=== PATIENT | female | born 1975 | race Caucasian/White ===

== ENCOUNTER 2020-04-22 14:28 | Emergency (ER) | payer MEDICAID, SELFPAY ==
[2020-04-22 14:29] VITALS: BP 125/79; PULSE 82; RESP 16; TEMP 36.7; O2SAT 96; BMI 27.1
--- NOTE | 2020-04-22 15:37 | RAD_ITS ---
STUDY: X-RAY - RIGHT KNEE REASON FOR EXAM: Female, 45 years old. RIGHT KNEE PAIN AND SWELLING. NO KNOWN INJURY TECHNIQUE: 4 view(s) of the knee. COMPARISON: None. FINDINGS: Normal visualized distal femur. Normal visualized proximal tibia and fibula. Normal proximal tibiofibular articulation. Normal medial femorotibial compartment. Normal lateral femorotibial compartment. Normal patellofemoral articulation. The soft tissue structures are unremarkable. RAD/Knee 4 or More Views IMPRESSION: Normal x-ray examination of the knee. Electronically Signed: Leonidas Charles, at 15:52 EDT , Service support ,
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
== END 2020-04-22 16:29 | disposition home or self-care (01) ==
PROVIDERS: Emergency Provider Emergency Medicine
DX: M25.561 Pain in right knee (principal); E78.5 Hyperlipidemia, unspecified
CPT/HCPCS: 73564; 99282

== ENCOUNTER 2022-01-02 21:58 | Emergency (ER) | payer MEDICAID, SELFPAY ==
[2022-01-02 21:59] VITALS: BP 118/79; PULSE 84; RESP 16; TEMP 36.7; O2SAT 100; BMI 26.1
--- NOTE | 2022-01-02 22:40 | ED.VIS.BACK ---
HPI History of Present Illness Chief Complaint: Back Informant: patient Narrative Narrative: Patient's been having exacerbation of her back pain for about 3 or 4 weeks. It is on the lower right side. It radiates to the upper right buttock only. No radiation down the legs. No bowel bladder dysfunction. No cancer. No recent fevers chills. No recent infections. She has had this in the past. She just has had trouble getting into her physician. Her appointment is coming up this Sunday and it is just bothering her too much. It is worse if she sits or bends. It is better if she lays on either one of her side and pulls her knees up toward her chest. She has been trialing Tylenol Motrin without any benefit. She has no trauma or fall. 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 [facility] Medical History Degenerated intervertebral disc Home Medications atorvastatin 20 mg PO QHS 12/10/13 [History Last Taken 08/23/17] gabapentin 600 mg PO DAILY 12/10/13 [History Last Taken 08/23/17] methylprednisolone 4 mg PO UD #1 box 04/22/20 [Rx Last Taken Unknown] amitriptyline 10 mg PO DAILY 01/02/22 [History Last Taken Unknown] hydrocodone-acetaminophen 1 tab PO Q6H PRN 3 Days #10 tab 01/02/22 [Rx Last Taken Unknown] prednisone 60 mg PO DAILY #15 tab 01/02/22 [Rx Last Taken Unknown] Allergy/AdvReac Type Severity Reaction Status Date / Time acetaminophen [From Percocet] Allergy Rash Verified 01/02/22 22:02 oxycodone HCl [From Percocet] Allergy Rash Verified 01/02/22 22:02 erythromycin base AdvReac Nausea/Vom/ Verified 01/02/22 22:02 [Erythromycin Base] Diarrhea indomethacin [From Indocin] AdvReac Upset Verified 01/02/22 22:02 Stomach indomethacin sodium AdvReac Upset Verified 01/02/22 22:02 [From Indocin] Stomach ondansetron HCl [From Zofran] AdvReac Vomiting Verified 01/02/22 22:02 Social History Smoking Status: Never smoker ROS ROS ED Constitutional Constitutional ED: Denies chills or fever(s) ENT ENT ED: Denies sore throat Cardiovascular Cardiovascular: Denies chest pain Respiratory/Chest Respiratory/Chest: Denies dyspnea Gastrointestinal Gastrointestinal: Denies abdominal pain, constipation, diarrhea, melena, nausea or vomiting Genitourinary Genitourinary ED: Denies dysuria, hematuria or urinary frequency Musculoskeletal Musculoskeletal: Reports back pain; Denies neck pain Integumentary Denies rash Neurologic Neurologic: Denies paresthesias or weakness Endocrine Endocrinology: Denies polydipsia or polyuria Hematologic/Lymphatic Hematologic/Lymphatic: Denies easy bleeding or easy bruising Allergic/Immunologic Allergic/Immunologic ED: Denies mouth swelling or urticaria EXAM Physical Exam Const Vital Signs: 01/02/22 21:59 Temperature 98.0 F Temperature Source Temporal Pulse Rate 84 Respiratory Rate 16 Blood Pressure 118/79 Blood Pressure Mean 92 Pulse Ox 100 Oxygen Delivery Method Room Air Positive well nourished and well developed Constitutional Narrative: Patient is lying on her left side. She is more comfortable with her legs pulled up. General Appearance ED: well developed and NAD HEENT Negative for trauma Eyes EOMs intact bilaterally Resp normal respiratory effort and clear to auscultation bilaterally Cardio regular rate and regular rhythm GI normal to inspection, nondistended, normoactive bowel sounds, soft to palpation, non-tender and non-distended Back/Spine normal to inspection Back/Spine Narrative: Patient has tenderness mostly in the right SI joint area. There is no skin changes. No vesicles. There is slight but not much buttock/sciatic notch tenderness. Distal reflexes are normal. Distal sensation is normal. Extremity normal to inspection Extremity Narrative: No edema or cords or asymmetry. General Extremety ED: Negative for edema or tenderness General Extremity: Negative for edema Neuro Deep Tendon Reflexes: Rt Patellar (L4): 2+, Lt Patellar (L4): 2+, Rt Ankle (S1): 1+ and Lt Ankle (S1): 1+ Deep Tendon Reflexes Back: Rt Patellar (L4): 2+, Lt Patellar (L4): 2+, Rt Ankle (S1): 1+ and Lt Ankle (S1): 1+ Psych mental status grossly normal Skin no rashes or lesions noted and no wounds MDM MDM MDM Narrative Medical decision making narrative: Patient is on gabapentin routinely. Her online prescribing report shows no narcotics at all. She has an allergy to Percocet but has tolerated hydrocodone before. With her 3 to 4 weeks of symptoms not getting better in a appearing to be SI joint pain, I will start her on a short course of steroids. She was use ice and rest. I recommend she still follow-up with her physician this Sunday to be rechecked. We discussed reasons to return such as weakness numbness tingling bowel or bladder dysfunction or fevers. Discharge Plan Triage Chief Complaint: Back ED Provider: Jasbir Bardales Dx/Rx/DC Orders Clinical Impression: Pain of right sacroiliac joint Instructions: ED Back Pain (Acute or Chronic), ED Sacroiliitis Prescriptions: New hydrocodone-acetaminophen 5-325 mg tablet 1 tab PO Q6H PRN (Reason: pain) 3 Days Qty: 10 RF: 0 prednisone 20 MG tablet 60 mg PO DAILY Qty: 15 RF: 0 No Action gabapentin 600 MG tablet 600 mg PO DAILY RF: 0 atorvastatin 20 MG tablet 20 mg PO QHS RF: 0 methylprednisolone 4 MG tablets,dose pack 4 mg PO UD Qty: 1 RF: 0 amitriptyline 10 mg Tablet 10 mg PO DAILY RF: 0 Primary Care Provider: Rosa Muhammad NP Referrals: Rosa Muhammad NP, MANAGER OF ADMINISTRATION-[facility] [Primary Care Provider] - Keep Alfredo appointment Disposition Disposition: Home, Self Care
[2022-01-02] MEDS: Orphenadrine 60 MG/2 ML Ampul IM (23:00)
[2022-01-02] MEDS: Ketorolac 60 MG/2 ML Vial IM (23:00)
[2022-01-02 23:06] VITALS: BP 115/80; PULSE 81; RESP 16; O2SAT 97
== END 2022-01-02 23:20 | disposition home or self-care (01) ==
PROVIDERS: Emergency Provider Emergency Medicine; PCP Nurse Practitioner Family; Visit Provider Emergency Medicine
DX: M53.3 Sacrococcygeal disorders, not elsewhere classified (principal)
CPT/HCPCS: 96372; 99282

== ENCOUNTER 2022-05-23 20:22 | Emergency (ER) | payer MEDICAID, SELFPAY ==
[2022-05-23 20:23] VITALS: BP 123/87; PULSE 85; RESP 15; TEMP 35.7; O2SAT 97; BMI 28.1
--- NOTE | 2022-05-23 20:57 | ED.VIS.BACK ---
HPI History of Present Illness Chief Complaint: Back Narrative Narrative: 47-year-old female presenting with back pain for she states has had this for 4 months now. She seen by her primary care provider who is providing her Ultram. She was referred to Dr. Adam who was going to do surgery after getting an MRI but this was deferred because Dr. Kolb had emergent surgery. Patient is now out of Ultram and she is having pain. No new trauma. No loss of bladder or bowel control. No saddle anesthesia. PFSH PFS Medical History Degenerated intervertebral disc High cholesterol HTN (hypertension) Home Medications atorvastatin 20 mg tablet 20 mg PO QHS 12/10/13 [History Last Taken 08/23/17] gabapentin 600 mg tablet 600 mg PO DAILY 12/10/13 [History Last Taken 08/23/17] amitriptyline 10 mg tablet 10 mg PO QHS 01/02/22 [History Last Taken Unknown] prednisone 20 mg tablet 60 mg PO DAILY #15 tabs 01/02/22 [Rx Last Taken Unknown] prednisone 50 mg tablet 50 mg PO DAILY #4 tabs 05/23/22 [Rx Last Taken Unknown] tramadol 50 mg tablet (Ultram) 50 mg PO TID PRN pain #12 tabs 05/23/22 [Rx Last Taken Unknown] Allergy/AdvReac Type Severity Reaction Status Date / Time erythromycin base AdvReac Nausea/Vom/ Verified 05/23/22 20:23 [Erythromycin Base] Diarrhea indomethacin [From Indocin] AdvReac Upset Verified 05/23/22 20:23 Stomach indomethacin sodium AdvReac Upset Verified 05/23/22 20:23 [From Indocin] Stomach ondansetron HCl [From Zofran] AdvReac Vomiting Verified 05/23/22 20:23 Social History Smoking Status: Never smoker ROS ROS ED Constitutional Constitutional ED: Denies chills, fever(s) or sweats Eyes Eyes: Denies blurry vision or change in vision ENT ENT ED: Denies ear pain or sore throat Cardiovascular Cardiovascular: Denies chest pain, palpitations or racing heartbeat Respiratory/Chest Respiratory/Chest: Denies cough, dyspnea or sputum Gastrointestinal Gastrointestinal: Denies abdominal pain, constipation, diarrhea, nausea or vomiting Genitourinary Genitourinary ED: Denies dysuria, hematuria or urinary frequency Musculoskeletal Musculoskeletal: Reports back pain; Denies arthralgias, myalgias or neck pain Integumentary Denies abscess, Abrasions or rash Neurologic Neurologic: Denies headache(s), paresthesias or weakness Psychiatric Psychiatric: Denies anxiety, depression, suicidal ideation or suicidal thoughts Endocrine Endocrinology: Denies polydipsia or polyuria EXAM Physical Exam Const Vital Signs: 05/23/22 20:23 Temperature 96.2 F L Temperature Source Temporal Pulse Rate 85 Respiratory Rate 15 Blood Pressure 123/87 H Blood Pressure Mean 99 Pulse Ox 97 Positive well nourished General Appearance ED: NAD HEENT Reports moist mucous membranes Eyes PERRL and EOMs intact bilaterally Resp normal respiratory effort Cardio regular rate and regular rhythm Back/Spine Back/Spine Narrative: Tenderness palpation right lumbar paraspinal musculature extending to the right gluteal region. No obvious midline deformity or step-off. No rashes or bruising. Patient ambulatory with antalgic gait. Extremity normal to inspection Neuro oriented x3 and no sensory deficits noted Sensorium / Orientation: alert Motor Exam: strength 5/5 throughout Psych mental status grossly normal Skin no rashes or lesions noted MDM MDM MDM Narrative Medical decision making narrative: Patient with acute exacerbation of chronic back pain which is may be exacerbated because he is out of medication. She was lost to follow-up with her surgeon and her primary care provider has not been able to see her to refill her medications. She requests a refill. Patient will also be started on a prednisone burst for her lower back. She is given Ultram but I cannot bridge her till the . I counseled her to follow-up with her PCP for monitoring until she can get the procedure she was waiting for. She is amenable to this. No signs or symptoms of infectious etiology or cauda equina syndrome. Impression: 1. chronic back pain Discharge Plan Triage Chief Complaint: Back ED Provider: Tj Hurd Dx/Rx/DC Orders Instructions: ED Back Pain (Acute or Chronic) Prescriptions: New prednisone 50 mg tablet 50 mg PO DAILY Qty: 4 0RF tramadol [Ultram] 50 mg tablet 50 mg PO TID PRN (Reason: pain) Qty: 12 0RF No Action gabapentin 600 MG tablet 600 mg PO DAILY atorvastatin 20 MG tablet 20 mg PO QHS amitriptyline 10 mg Tablet 10 mg PO QHS prednisone 20 MG tablet 60 mg PO DAILY Qty: 15 0RF Primary Care Provider: Rosa Muhammad NP Referrals: Rosa Muhammad NP, RESEARCH PSYCHOLOGIST-C [Primary Care Provider] - Disposition Disposition: Home, Self Care
[2022-05-23] MEDS: traMADol 50 MG Tablet PO (21:00)
[2022-05-23] MEDS: predniSONE 20 MG Tablet 60 MG PO (21:00)
== END 2022-05-23 21:01 | disposition home or self-care (01) ==
PROVIDERS: Emergency Provider Student in an Organized Health Care Education/Training Program; PCP Nurse Practitioner Family; Visit Provider Student in an Organized Health Care Education/Training Program
DX: M54.50 Low back pain, unspecified (principal); G89.29 Other chronic pain; E78.00 Pure hypercholesterolemia, unspecified; Z79.899 Other long term (current) drug therapy
CPT/HCPCS: 99283